=== PATIENT | male | born 1960 | race Caucasian/White ===

== ENCOUNTER → 2020-11-13 | Outpatient (CLI) | payer MEDICARE, OTHER ==
[~2020-11-13] MED LIST: ADVAIR 500-501 EACH INH; ATORVASTATIN CA10 MG PO; ECOTRIN81 MG PO; HYDROCODON-ACE1 EAC4 PO; LEVOFLOXACIN500 MG PO; LISINOPRIL10 MG PO; LOPRESSOR 25 MG25 MG PO; NITROGLYCERIN0.4 MG SL; PROVENTIL HFA6.7 GM INH; SPIRIVA18 MCG INH
== END ==
LOC: ECHO 09:00
DX: I50.22 Chronic systolic (congestive) heart failure (principal); I25.5 Ischemic cardiomyopathy; I37.1 Nonrheumatic pulmonary valve insufficiency
CPT/HCPCS: ECHO; 93306

== ENCOUNTER → 2020-11-14 | Outpatient (CLI) | payer MEDICARE, OTHER ==
[2020-11-14 12:53] LABS: RED BLOOD COUNT 4.59 M/UL (4.20-5.50); WHITE BLOOD COUNT 12.1 K/UL (4.5-11.0)
[2020-11-14 13:14] LABS: BUN/CREATININE RATIO 10 (0-10)
== END ==
LOC: LAB 10:58
PROVIDERS: Internal Medicine Cardiovascular Disease
DX: Z45.02 Encounter for adjustment and management of automatic implantable cardiac defibrillator (principal); I25.5 Ischemic cardiomyopathy; I50.22 Chronic systolic (congestive) heart failure; Z20.822 Contact with and (suspected) exposure to COVID-19
CPT/HCPCS: 36415; 71046; 80048; 85025; U0003

== ENCOUNTER → 2020-11-16 | Outpatient (CLI) | payer MEDICARE, OTHER | LOC: CATH 07:07 | DX: Z45.02 Encounter for adjustment and management of automatic implantable cardiac defibrillator (principal); I25.10 Atherosclerotic heart disease of native coronary artery without angina pectoris; I25.5 Ischemic cardiomyopathy; I11.0 Hypertensive heart disease with heart failure; I50.22 Chronic systolic (congestive) heart failure; I25.2 Old myocardial infarction; Z95.1 Presence of aortocoronary bypass graft; Z88.5 Allergy status to narcotic agent; Z87.891 Personal history of nicotine dependence; Z86.74 Personal history of sudden cardiac arrest; Z79.82 Long term (current) use of aspirin; Z79.899 Other long term (current) drug therapy | CPT/HCPCS: 33240; 93641; 99152; 99153; C1721; J2250; J3010; J3370; J7040; J7050 ==